=== PATIENT | female | born 1960 | race Caucasian/White ===

== ENCOUNTER 2017-01-18 21:58 | Emergency (ER) | payer MEDICAID ==
[2017-01-18 22:14] VITALS: BP 147/85
--- NOTE | 2017-01-18 22:24 | EDM.PDOC ---
ED HPI Behavioral Health - General Chief Complaint: Behavioral/Psych Stated Complaint: EVAL Time Seen by Provider: 01/18/17 22:24 Source: Reports: Patient, Old records, Police, RN notes reviewed Exam Limitations: Reports: Intoxication, Uncooperative - History of Present Illness INITIAL COMMENTS - FREE TEXT/NARRATIVE: Brought by residential manager complaint Suicidal threats, depression HPI 56-year-old female who called the police, stating that she was suicidal. She has plans to stab herself in the bathroom However she states she loves her too much to commit suicide and for this reason she called the therapy administrative assistant. She has 4 children states they are "a cause of my demise" That she has a history of depression since age 2 but also states she's never been seen for this, never had medication or counseling or psychiatric treatment or admission She is reluctant to discuss this any further and in fact becomes quite rude starts wearing and is uncooperative From the chart she does have a history of alcohol intoxication - Related Data Allergies Allergy/AdvReac Type Severity Reaction Status Date / Time shellfish derived Allergy Intermediate Difficulty Verified 08/07/16 15:07 Breathing shrimp Allergy Intermediate Difficulty Verified 08/07/16 15:07 Breathing Home Medications: Home Meds rOPINIRole [Requip] 0.5 mg PO DAILY 01/21/15 [History] Citalopram Hydrobromide [Celexa] 20 mg PO DAILY 04/12/16 [History] Past Medical History HEENT History: Reports: Hard of hearing, Other (see below) Other HEENT History: hearing loss after viral infection in left ear Cardiovascular History: Reports: Other (see below) Other Cardiovascular History: "palpatations" in past Respiratory History: Reports: Other (see below) Other Respiratory History: allergy induced difficulty breathing Gastrointestinal History: Reports: Pancreatitis [employer]ACH[employer] History: Reports: Musculoskeletal History: Reports: Other (see below) Other Musculoskeletal History: right knee pain in past Psychiatric History: Reports: Depression Endocrine/Metabolic History: Reports: Obesity/BMI 30+ - Past Surgical History GI Surgical History: Reports: EGD Social & Family History - Tobacco Use Smoking Status *Q: Light Tobacco Smoker Years of Tobacco use: 36 Packs/Tins Daily: 0.2 Used Tobacco, but Quit: Yes Month Tobacco Last Used: 0 Second Hand Smoke Exposure: No - Caffeine Use Caffeine Use: Reports: Coffee - Alcohol Use Days Per Week of Alcohol Use: 2 Number of Drinks Per Day: 10 Total Drinks Per Week: 20 - Recreational Drug Use Recreational Drug Use: No ED ROS GENERAL - Review of Systems Review Of Systems: Unable To Obtain (Patient uncooperative and intoxicated) ED EXAM, BEHAVIORAL HEALTH - Physical Exam Exam: See Below Exam Limited By: Uncooperative General Appearance: alert, moderate distress, other (Anxious swearing uncooperativeMild tachycardia and elevation of blood pressure, odor of alcohol noted) Eye Exam: bilateral eye: normal inspection Ears: hearing grossly normal Nose: normal inspection Head: atraumatic, normocephalic Neck: supple Respiratory/Chest: no respiratory distress Cardiovascular: normal peripheral pulses Extremities: normal inspection Neurological: alert, no motor/sensory deficits Psychiatric: depressed mood, flat affect, tearful, agitated, uncooperative, suicidal plan, suicidal thoughts, visual hallucinations (Claims she is seeing the light of the [place]) Skin Exam: Warm, Normal color (A) COURSE, BEHAVIORAL HEALTH COMP - Course Vital Signs: Last Vital Signs Temp 36.1 C 01/18/17 22:12 Pulse 102 H 01/18/17 22:12 Resp 20 01/18/17 22:12 BP 147/85 H 01/18/17 22:12 Pulse Ox 100 01/18/17 22:12 Orders, Labs, Meds: Active Orders 24 hr Category Date Time Status DRUG SCREEN, URINE [URCHEM] Stat Lab 01/19/17 06:26 Ordered UA W/MICROSCOPIC [URIN] Stat Lab 01/19/17 06:26 Ordered LORazepam [Ativan] Med 01/19/17 06:33 Once 0.5 mg PO ONETIME ONE Laboratory Tests 01/18/17 01/18/17 01/18/17 Range/Units 22:31 22:31 22:32 WBC 7.6 (4.5-11.0) K/uL RBC 4.61 (3.30-5.50) M/uL Hgb 14.9 (12.0-15.0) g/dL Hct 43.8 (36.0-48.0) % MCV 95 (80-98) fL MCH 32 H (27-31) pg MCHC 34 (32-36) % Plt Count 213 (150-400) K/uL Sodium 145 (140-148) mmol/L Potassium 4.2 (3.6-5.2) mmol/L Chloride 110 H (100-108) mmol/L Carbon Dioxide 23 (21-32) mmol/L Anion Gap 16.2 H (5.0-14.0) mmol/L BUN 11 (7-18) mg/dL Creatinine 0.6 (0.6-1.0) mg/dL Est Cr Clr Drug Dosing 82.80 mL/min Estimated GFR (MDRD) > 60 (>60) Glucose 102 (74-106) mg/dL Calcium 8.9 (8.5-10.1) mg/dL Total Bilirubin 0.2 (0.2-1.0) mg/dL AST 39 H (15-37) U/L ALT 63 (12-78) U/L Alkaline Phosphatase 77 (46-116) U/L Total Protein 8.0 (6.4-8.2) g/dL Albumin 3.9 (3.4-5.0) g/dL Globulin 4.1 H (2.3-3.5) g/dL Albumin/Globulin Ratio 1.0 L (1.2-2.2) Salicylates (2.0-20.0) mg/dL Acetaminophen 0.0 L (10.0-30.0) ug/mL Ethyl Alcohol mg/dL 01/18/17 01/18/17 Range/Units 22:32 22:32 WBC (4.5-11.0) K/uL RBC (3.30-5.50) M/uL Hgb (12.0-15.0) g/dL Hct (36.0-48.0) % MCV (80-98) fL MCH (27-31) pg MCHC (32-36) % Plt Count (150-400) K/uL Sodium (140-148) mmol/L Potassium (3.6-5.2) mmol/L Chloride (100-108) mmol/L Carbon Dioxide (21-32) mmol/L Anion Gap (5.0-14.0) mmol/L BUN (7-18) mg/dL Creatinine (0.6-1.0) mg/dL Est Cr Clr Drug Dosing mL/min Estimated GFR (MDRD) (>60) Glucose (74-106) mg/dL Calcium (8.5-10.1) mg/dL Total Bilirubin (0.2-1.0) mg/dL AST (15-37) U/L ALT (12-78) U/L Alkaline Phosphatase (46-116) U/L Total Protein (6.4-8.2) g/dL Albumin (3.4-5.0) g/dL Globulin (2.3-3.5) g/dL Albumin/Globulin Ratio (1.2-2.2) Salicylates 4.9 (2.0-20.0) mg/dL Acetaminophen (10.0-30.0) ug/mL Ethyl Alcohol 135 mg/dL Re-Assessment/Re-Exam: 56-year-old female with depression, suicidal ideation, suicidal plans Suspected alcohol intoxication Uncooperative Psychiatric orders initiated 72 hour hold because of intoxication and depression and suicidal thoughts and plans Patient had refused labs initially. Given that she was intoxicated, she could not be discharged home and could not be assessed by psychiatry crisis team Patient is now consenting Labs and urine was ordered and drawn Lorazepam 0.5 mg by mouth for anxiety Transfer to care of Dr. Sanchez pending results of crisis team assessment Departure - Departure Time of Disposition: 07:00 Disposition: Still A Patient 30 Condition: fair Clinical Impression: Suicidal behavior, Depression - My Orders Last 24 Hours: My Active Orders 01/19/17 06:26 DRUG SCREEN, URINE [URCHEM] Stat UA W/MICROSCOPIC [URIN] Stat 01/19/17 06:33 LORazepam [Ativan] 0.5 mg PO ONETIME ONE - Assessment/Plan Last 24 Hours: My Active Orders 01/19/17 06:26 DRUG SCREEN, URINE [URCHEM] Stat UA W/MICROSCOPIC [URIN] Stat 01/19/17 06:33 LORazepam [Ativan] 0.5 mg PO ONETIME ONE
[2017-01-19] MEDS ORDERED: LORazepam 0.5 MG Tab PO ONE (06:33)
== END 2017-01-19 10:45 | disposition still patient (30) ==
LOC: JP.ED 21:58
DX: R45.851 Suicidal ideations (principal); F32.9 Major depressive disorder, single episode, unspecified; F17.210 Nicotine dependence, cigarettes, uncomplicated; E66.9 Obesity, unspecified; Z68.33 Body mass index [BMI] 33.0-33.9, adult; Z79.899 Other long term (current) drug therapy; Z91.013 Allergy to seafood
CPT/HCPCS: 36415; 80053; 80305; 81001; 85027; 99284; A9270; G0480

== ENCOUNTER 2017-06-26 09:00 | Day surgery (SDC) | payer MEDICAID ==
[~2017-06-26 09:00] MED LIST: Dextrose 5%-Lactated Ringers 1,000 ML IV SCH
[2017-06-26] MEDS ORDERED: fentaNYL 100 MCG/2 ML SDV ONE (09:12)
[2017-06-26] MEDS ORDERED: Propofol 200 MG/20 ML SDV ONE (09:12)
[2017-06-26] MEDS ORDERED: Midazolam 1 MG/ML 2 ML SDV ONE (09:12)
[2017-06-26] MEDS ORDERED: Dextrose 5%-Lactated Ringers 1,000 ML IV SCH (09:30)
[2017-06-26 12:20] VITALS: BP 121/80
--- NOTE | 2017-06-27 14:26 | OR ---
DATE OF PROCEDURE: 06/26/2017 PREOPERATIVE DIAGNOSIS: Indications for screening colonoscopy. POSTOPERATIVE DIAGNOSIS: Normal screening colonoscopy. OPERATIVE PROCEDURE: Flexible colonoscopy. ANESTHESIA: IV sedation. INDICATION FOR PROCEDURE: A 56-year-old female presenting with indications for a screening colonoscopy. She has no personal history of polyps or other colonic pathology and no family history of colon carcinoma. The plan is to proceed with a flexible colonoscopy with biopsies and/or polypectomy as indicated. Potential risks including bleeding and perforation were discussed, and the patient wishes to proceed. DETAILS OF PROCEDURE: The patient was taken to the operating room and placed in a left lateral decubitus position. IV sedation was administered, after which the initial digital rectal exam was performed and was unremarkable. Colonoscope was then passed into the rectum with retroflexion revealing uncomplicated hemorrhoidal columns. The scope was then eventually passed to the level of the cecum. The prep was fairly good with there only being a small amount of liquid stool present. To that level, no pathology was seen, specifically there were no areas of colitis, no diverticular disease, and no polyps or other signs of neoplasia. The scope was then withdrawn, the above findings were reconfirmed, and the procedure concluded. The patient was taken to the recovery room in a satisfactory condition. Recommendation would be to repeat the colonoscopy in 10 years. Maykel Matt MD /[id number]
== END 2017-06-26 12:15 | disposition home or self-care (01) ==
LOC: JP.SDS 09:00
PROVIDERS: ATTEND Surgery
DX: Z12.11 Encounter for screening for malignant neoplasm of colon (principal); K64.9 Unspecified hemorrhoids
CPT/HCPCS: 45378; J2250; J2704; J3010; J7042

== ENCOUNTER → 2019-02-27 | Outpatient (CLI) | payer MEDICAID ==
--- NOTE | 2019-02-28 14:42 | CRLCT ---
Examination: CT chest Indication: Significant history of tobacco use. Lung cancer screening. Comparison: None available Technique: Contiguous axial CT images of the chest were acquired without IV contrast. The radiation dose protocol used. Coronal and sagittal reformations generated and reviewed. Findings: No pulmonary opacities. Pleural spaces are clear. Central airways are patent. No pulmonary nodules. Normal heart size. No pericardial effusion. Normal caliber main pulmonary artery. Normal course and caliber of thoracic aorta. No enlarged mediastinal, axillary, or supraclavicular lymphadenopathy by CT size criteria. Normal esophagus. Visualized portions of thyroid unremarkable. Limited noncontrast images of upper abdomen are unremarkable. No acute or aggressive appearing osseous lesions. Impression: 1. No pulmonary opacities or pulmonary nodules are identified. Lung rads category 1. Recommend continued screening with low-dose chest CT in 1 year. Please note that all CT scans at this facility use dose modulation, iterative reconstruction, and/or weight-based dosing when appropriate to reduce radiation dose to as low as reasonably achievable. Dictated by Alejandro Daily MD @ Feb 28 2019 2:29PM Signed by Dr. Alejandro Daily @ Feb 28 2019 2:41PM
== END | disposition home or self-care (01) ==
LOC: JP.CT 14:41
PROVIDERS: ATTEND Nurse Practitioner Family
DX: Z12.2 Encounter for screening for malignant neoplasm of respiratory organs (principal); Z87.891 Personal history of nicotine dependence
CPT/HCPCS: G0297